=== PATIENT | female | born 1985 | race African-American/Black ===

== ENCOUNTER 2022-10-06 18:37 | Emergency (ER) | payer BC, OTHER ==
[~2022-10-06] VITALS: Ht 172.7 cm; Wt 127.0 kg
[2022-10-06] MEDS ORDERED: CYCLOBENZAPRINE5 MG PO (20:38)
== END 2022-10-06 20:49 | disposition home or self-care (01) ==
LOC: FSED 18:43
DX: S00.83XA Contusion of other part of head, initial encounter (principal); S13.4XXA Sprain of ligaments of cervical spine, initial encounter; R51.9 Headache, unspecified; V43.52XA Car driver injured in collision with other type car in traffic accident, initial encounter; Y92.488 Other paved roadways as the place of occurrence of the external cause; E66.9 Obesity, unspecified
CPT/HCPCS: 70450; 72125; 81025; 99283